=== PATIENT | female | born 1970 | race Caucasian/White ===

== ENCOUNTER 2019-11-30 08:40 | Outpatient (CLI) | payer BC | END 2019-11-30 08:41 | disposition home or self-care (01) | LOC: CTENTCT 08:40 | PROVIDERS: ATTEND Specialist | DX: G44.229 Chronic tension-type headache, not intractable (principal) | CPT/HCPCS: 70486 ==

== ENCOUNTER 2023-09-17 12:14 | Outpatient (CLI) | payer BC | END 2023-09-17 12:15 | disposition home or self-care (01) | LOC: BICMAMMO 12:14 | PROVIDERS: ATTEND Family Medicine | DX: Z12.31 Encounter for screening mammogram for malignant neoplasm of breast (principal) | CPT/HCPCS: 77063; 77067 ==